=== PATIENT | male | born 1945 | race Caucasian/White ===

== ENCOUNTER 2016-11-23 11:25 | Emergency (ER) | payer OTHER ==
[2016-11-23 11:35] VITALS: BP 131/52
[2016-11-23] MEDS ORDERED: Insulin Regular, Human 100 Units/ML 3 ML Vial SUBCUT ONE (11:49)
[2016-11-23] MEDS ORDERED: Sodium Chloride 0.9% 10 ML Syringe FLUSH PRN (12:11)
--- NOTE | 2016-11-23 12:54 | EDM.PDOC ---
ED HPI GENERAL MEDICAL PROBLEM - General Chief Complaint: General Stated Complaint: Hyperglycemia Time Seen by Provider: 11/23/16 12:20 Source of Information: Reports: Family History Limitations: Reports: Altered Mental Status - History of Present Illness INITIAL COMMENTS - FREE TEXT/NARRATIVE: Patient brought here by spouse after she found his morning blood sugar to be just over 500 on their monitor. He has dementia and per may have acted a bit more confused than usual this morning. Normally she gets up before him and makes certain he gets his morning pills and insulin. Today she slept in and he woke up before her. She asked him if he took his insulin and he said yes. She looked at the pills that were laid out for the AM and he had not taken those. She says she doubts he took his morning insulin as he usually will not remember to do this on his own. Also reports patient has had recent cough during ROS. No fevers/chills. No other changes per . Negative for HEENT/CV/GI//Musc-skeletal changes. No med changes recently. - Related Data Allergies Allergy/AdvReac Type Severity Reaction Status Date / Time No Known Allergies Allergy Verified 11/23/16 11:29 Home Meds: Home Meds Aspirin [Low Dose Aspirin EC] 81 mg PO DAILY 11/23/16 [History] Capsaicin [Trixaicin HP 0.075% Crm] 1 applic TOP TID PRN 11/23/16 [History] Hydrochlorothiazide 25 mg PO DAILY 11/23/16 [History] Hydrocodone/Acetaminophen [Hydrocodon-Acetaminophn 10-325] 1 tab PO Q8HR PRN [History] Insulin Glarg,Human.Rec.Analog [Lantus] 60 units SUBCUT DAILY 11/23/16 [History] Lisinopril 10 mg PO DAILY 11/23/16 [History] Non-Formulary Medication [NF Drug] 1 applic TOP TID 11/23/16 [History] Non-Formulary Medication [NF Drug] 1 cap PO BIDMEALS 11/23/16 [History] Pregabalin [Lyrica] 100 mg PO BID 11/23/16 [History] Timolol Maleate [Timoptic 0.5% Ophth Soln] 1 drop EYEBOTH DAILY 11/23/16 [ History] atorvaSTATin Calcium [Atorvastatin Calcium] 80 mg PO BEDTIME 11/23/16 [History] metFORMIN HCl [Metformin HCl] 1,000 mg PO BIDAC 11/23/16 [History] Past Medical History HEENT History: Reports: Glaucoma Cardiovascular History: Reports: High Cholesterol, Hypertension Musculoskeletal History: Reports: Osteoarthritis Neurological History: Reports: Other (See Below) (Dementia) Endocrine/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 reports no additional changes.) ED EXAM, GENERAL - Physical Exam Exam: See Below Exam Limited By: No Limitations General Appearance: Alert, WD/WN, No Apparent Distress, Other (very happy, pleasantly confused. ) Eye Exam: Bilateral Eye: EOMI, PERRL Ears: Normal External Exam, Normal Canal, Hearing Grossly Normal, Normal TMs Nose: Normal Inspection Throat/Mouth: Normal Inspection, Normal Lips, Normal Oropharynx, Normal Voice, No Airway Compromise, Other (Is missing some teeth) Head: Atraumatic, Normocephalic Neck: Normal Inspection, Supple, Non-Tender, Full Range of Motion. No: Lymphadenopathy (L), Lymphadenopathy (R) Respiratory/Chest: No Respiratory Distress, Lungs Clear, Normal Breath Sounds, No Accessory Muscle Use, Chest Non-Tender Cardiovascular: Normal Peripheral Pulses, Regular Rate, Rhythm, No Edema, No Murmur Peripheral Pulses: 2+: Radial (L), Radial (R) GI/Abdominal: Normal Bowel Sounds, Soft, Non-Tender Back Exam: Normal Inspection Extremities: Normal Inspection, Normal Range of Motion, Non-Tender, No Pedal Edema, Normal Capillary Refill Neurological: Alert, Normal Gait, No Motor/Sensory Deficits, Memory Loss Recent Events Psychiatric: Normal Affect, Normal Mood Skin Exam: Warm, Dry, Intact, Normal Color Course - Vital Signs Last Recorded V/S: Last Vital Signs Temp 37.4 C 11/23/16 11:34 Pulse 87 11/23/16 11:34 Resp 16 11/23/16 11:34 BP 131/52 L 11/23/16 11:34 Pulse Ox 98 11/23/16 11:34 - Orders/Labs/Meds Orders: Active Orders 24 hr Category Date Time Status Blood Glucose Check, Bedside [RC] ONETIME Care 11/23/16 11:50 Active Glucose [Blood Glucose Check, Bedside] [RC] ONETIME Care 11/23/16 13:18 Active Chest 2V [CR] Stat Exams 11/23/16 11:48 Taken Insulin Regular, Human [HumuLIN R] Med 11/23/16 17:30 Active 6 unit SUBCUT BIDAC Sodium Chloride 0.9% [Saline Flush] Med 11/23/16 12:11 Active 10 ml FLUSH ASDIRECTED PRN Saline Lock Insert [OM.PC] Routine Oth 11/23/16 11:50 Ordered Medication Orders Insulin Human Regular (Humulin R) 6 unit SUBCUT BIDAC DAVID PRN Reason: Protocol Last Admin: 11/23/16 13:53 Dose: 6 units Sodium Chloride (Saline Flush) 10 ml FLUSH ASDIRECTED PRN PRN Reason: Keep Vein Open Last Admin: 11/23/16 13:29 Dose: 10 ml Labs: Laboratory Tests 11/23/16 11/23/16 11/23/16 Range/Units 11:41 12:05 12:05 WBC 13.7 H (4.0-10.2) K/uL RBC 4.48 (4.33-5.41) M/uL Hgb 13.5 (13.1-16.8) g/dL Hct 38.8 L (39.0-49.0) % MCV 86.6 (84.0-98.0) fL MCH 30.1 (28.2-33.3) pg MCHC 34.8 (31.7-36.0) g/dL RDW 12.3 (11.2-14.1) % Plt Count 278 (150-350) K/uL Neut % (Auto) 77.6 (45.0-80.0) % Lymph % (Auto) 11.3 (10.0-50.0) % [place] % (Auto) 7.5 (2.0-14.0) % Eos % (Auto) 3.1 (0.0-5.0) % Baso % (Auto) 0.5 (0.0-2.0) % Neut # (Auto) 10.61 H (1.40-7.00) K/uL Lymph # (Auto) 1.55 (0.50-3.50) K/uL [place] # (Auto) 1.02 H (0.00-1.00) K/uL Eos # (Auto) 0.42 (0.00-0.50) K/uL Baso # (Auto) 0.07 (0.00-0.20) K/uL Sodium 128 L (136-145) mmol/L Potassium 5.1 (3.5-5.1) mmol/L Chloride 94 L (98-107) mmol/L Carbon Dioxide 24.2 (21.0-32.0) mmol/L BUN 73 H (7-18) mg/dL Creatinine 1.79 H (0.51-1.17) mg/dL Est Cr Clr Drug Dosing 39.08 mL/min Estimated GFR (MDRD) 38 mL/min Glucose 441 H* (74-106) mg/dL POC Glucose 435 H* (65-110) mg/dl Lactic Acid (0.4-2.0) mmol/L Calcium 9.1 (8.5-10.1) mg/dL Total Bilirubin 0.4 (0.2-1.0) mg/dL AST 33 (15-37) U/L ALT 44 (12-78) U/L Alkaline Phosphatase 154 H (46-116) IU/L Pnr-A-Njgrnrrwdoc Pept (0-125) pg/mL Total Protein 7.1 (6.4-8.2) g/dL Albumin 3.2 L (3.4-5.0) g/dL Specimen Type Urine Color Urine Appearance Urine pH (5.0-9.0) Ur Specific [place] (1.005-1.030) Urine Protein (NEGATIVE) mg/dL Urine Glucose (UA) (NEGATIVE) mg/dL Urine Ketones (NEGATIVE) mg/dL Urine Occult Blood (NEGATIVE) Urine Nitrite (NEGATIVE) Urine Bilirubin (NEGATIVE) Urine Urobilinogen (0.2-1.0) E.U./dL Ur Leukocyte Esterase (NEGATIVE) Urine RBC /HPF Urine WBC /HPF Ur Epithelial Cells /LPF Urine Bacteria (NONE TO FEW) /HPF 11/23/16 11/23/16 11/23/16 Range/Units 12:05 12:05 12:20 WBC (4.0-10.2) K/uL RBC (4.33-5.41) M/uL Hgb (13.1-16.8) g/dL Hct (39.0-49.0) % MCV (84.0-98.0) fL MCH (28.2-33.3) pg MCHC (31.7-36.0) g/dL RDW (11.2-14.1) % Plt Count (150-350) K/uL Neut % (Auto) (45.0-80.0) % Lymph % (Auto) (10.0-50.0) % [place] % (Auto) (2.0-14.0) % Eos % (Auto) (0.0-5.0) % Baso % (Auto) (0.0-2.0) % Neut # (Auto) (1.40-7.00) K/uL Lymph # (Auto) (0.50-3.50) K/uL [place] # (Auto) (0.00-1.00) K/uL Eos # (Auto) (0.00-0.50) K/uL Baso # (Auto) (0.00-0.20) K/uL Sodium (136-145) mmol/L Potassium (3.5-5.1) mmol/L Chloride (98-107) mmol/L Carbon Dioxide (21.0-32.0) mmol/L BUN (7-18) mg/dL Creatinine (0.51-1.17) mg/dL Est Cr Clr Drug Dosing mL/min Estimated GFR (MDRD) mL/min Glucose (74-106) mg/dL POC Glucose (65-110) mg/dl Lactic Acid 1.2 (0.4-2.0) mmol/L Calcium (8.5-10.1) mg/dL Total Bilirubin (0.2-1.0) mg/dL AST (15-37) U/L ALT (12-78) U/L Alkaline Phosphatase (46-116) IU/L Xgr-[id number]-Bogzlabffpm Pept 48 (0-125) pg/mL Total Protein (6.4-8.2) g/dL Albumin (3.4-5.0) g/dL Specimen Type Urinblad Urine Color Yellow Urine Appearance Clear Urine pH 5.0 (5.0-9.0) Ur Specific [place] 1.015 (1.005-1.030) Urine Protein Negative (NEGATIVE) mg/dL Urine Glucose (UA) 500 H (NEGATIVE) mg/dL Urine Ketones Negative (NEGATIVE) mg/dL Urine Occult Blood Negative (NEGATIVE) Urine Nitrite Negative (NEGATIVE) Urine Bilirubin Negative (NEGATIVE) Urine Urobilinogen 0.2 (0.2-1.0) E.U./dL Ur Leukocyte Esterase Negative (NEGATIVE) Urine RBC 0-5 /HPF Urine WBC 0-5 /HPF Ur Epithelial Cells Few /LPF Urine Bacteria Rare (NONE TO FEW) /HPF 11/23/16 Range/Units 13:32 WBC (4.0-10.2) K/uL RBC (4.33-5.41) M/uL Hgb (13.1-16.8) g/dL Hct (39.0-49.0) % MCV (84.0-98.0) fL MCH (28.2-33.3) pg MCHC (31.7-36.0) g/dL RDW (11.2-14.1) % Plt Count (150-350) K/uL Neut % (Auto) (45.0-80.0) % Lymph % (Auto) (10.0-50.0) % [place] % (Auto) (2.0-14.0) % Eos % (Auto) (0.0-5.0) % Baso % (Auto) (0.0-2.0) % Neut # (Auto) (1.40-7.00) K/uL Lymph # (Auto) (0.50-3.50) K/uL [place] # (Auto) (0.00-1.00) K/uL Eos # (Auto) (0.00-0.50) K/uL Baso # (Auto) (0.00-0.20) K/uL Sodium (136-145) mmol/L Potassium (3.5-5.1) mmol/L Chloride (98-107) mmol/L Carbon Dioxide (21.0-32.0) mmol/L BUN (7-18) mg/dL Creatinine (0.51-1.17) mg/dL Est Cr Clr Drug Dosing mL/min Estimated GFR (MDRD) mL/min Glucose (74-106) mg/dL POC Glucose 332 H* (65-110) mg/dl Lactic Acid (0.4-2.0) mmol/L Calcium (8.5-10.1) mg/dL Total Bilirubin (0.2-1.0) mg/dL AST (15-37) U/L ALT (12-78) U/L Alkaline Phosphatase (46-116) IU/L Alu-P-Jpmtuubtpzr Pept (0-125) pg/mL Total Protein (6.4-8.2) g/dL Albumin (3.4-5.0) g/dL Specimen Type Urine Color Urine Appearance Urine pH (5.0-9.0) Ur Specific [place] (1.005-1.030) Urine Protein (NEGATIVE) mg/dL Urine Glucose (UA) (NEGATIVE) mg/dL Urine Ketones (NEGATIVE) mg/dL Urine Occult Blood (NEGATIVE) Urine Nitrite (NEGATIVE) Urine Bilirubin (NEGATIVE) Urine Urobilinogen (0.2-1.0) E.U./dL Ur Leukocyte Esterase (NEGATIVE) Urine RBC /HPF Urine WBC /HPF Ur Epithelial Cells /LPF Urine Bacteria (NONE TO FEW) /HPF Meds: Medications Generic Name Dose Route Start Last Admin Trade Name Freq PRN Reason Stop Dose Admin Insulin Human Regular 6 unit 11/23/16 17:30 11/23/16 13:53 Humulin R SUBCUT 6 units BIDAC DAVID Administration Protocol Sodium Chloride 10 ml 11/23/16 12:11 11/23/16 13:29 Saline Flush FLUSH 10 ml ASDIRECTED PRN Administration Keep Vein Open Discontinued Medications Generic Name Dose Route Start Last Admin Trade Name Freq PRN Reason Stop Dose Admin Sodium Chloride 1,000 mls @ 200 mls/hr 11/23/16 12:59 Normal Saline IV 11/23/16 17:58 .BOLUS ONE Sodium Chloride 250 mls @ 500 mls/hr 11/23/16 13:17 11/23/16 13:28 Normal Saline IV 11/23/16 13:46 500 mls/hr ONETIME ONE Administration Insulin Human Regular 8 unit 11/23/16 11:49 11/23/16 11:53 Humulin R SUBCUT 11/23/16 11:50 8 units ONETIME ONE Administration Protocol - Radiology Interpretation Free Text/Narrative:: chest xray performed. Questionable mild infiltrates inferiorly bilaterally vs fibrosis. - Re-Assessments/Exams Free Text/Narrative Re-Assessment/Exam: 11/23/16 14:20 WBC elevated at 13,000 Normal lactic acid. BUN/CR elevated. NA depressed. K high normal. Blood glucose in 400s. Improved with short acting insulin. Called and discussed patient with JOO Garcia for [facility] today. They accepted patient in transfer for treatment of hyperglycemia/hyponatremia/mild dehydration. BUN and Cr were normal in June per , as was sodium. May consider initiation of antibiotics given mild elevation in WBC and chest film findings. However lung exam unremarkable and no coughing/other respiratory symptoms were noted at all while patient was here. Driven by private vehicle to [facility]. Departure - Departure Time of Disposition: 14:24 Disposition: DC/Tfer to [facility] Condition: good Clinical Impression: Hyperglycemia, Hypokalemia, Mild dehydration, Cough Leukocytosis Qualifiers: Leukocytosis type: unspecified Qualified Code(s): D72.829 - Elevated white blood cell count, unspecified - Discharge Information Forms: ED Department Discharge - My Orders Last 24 Hours: My Active Orders 11/23/16 11:48 Chest 2V [CR] Stat 11/23/16 11:50 Blood Glucose Check, Bedside [RC] ONETIME Saline Lock Insert [OM.PC] Routine 11/23/16 12:11 Sodium Chloride 0.9% [Saline Flush] 10 ml FLUSH ASDIRECTED PRN 11/23/16 13:18 Glucose [Blood Glucose Check, Bedside] [RC] ONETIME 11/23/16 17:30 Insulin Regular, Human [HumuLIN R] 6 unit SUBCUT BIDAC - Assessment/Plan Last 24 Hours: My Active Orders 11/23/16 11:48 Chest 2V [CR] Stat 11/23/16 11:50 Blood Glucose Check, Bedside [RC] ONETIME Saline Lock Insert [OM.PC] Routine 11/23/16 12:11 Sodium Chloride 0.9% [Saline Flush] 10 ml FLUSH ASDIRECTED PRN 11/23/16 13:18 Glucose [Blood Glucose Check, Bedside] [RC] ONETIME 11/23/16 17:30 Insulin Regular, Human [HumuLIN R] 6 unit SUBCUT BIDAC
[2016-11-23] MEDS ORDERED: Sodium Chloride 0.9% 1,000 ML IV ONE (12:59)
[2016-11-23] MEDS ORDERED: Sodium Chloride 0.9% 250 ML IV ONE (13:17)
[2016-11-23] MEDS ORDERED: Insulin Regular, Human 100 Units/ML 3 ML Vial SUBCUT SCH (17:30)
== END 2016-11-23 14:40 ==
LOC: LL.ED 11:25
DX: E11.65 Type 2 diabetes mellitus with hyperglycemia (principal); E87.6 Hypokalemia; E86.0 Dehydration; R05 Cough; I10 Essential (primary) hypertension; E78.00 Pure hypercholesterolemia, unspecified; M19.90 Unspecified osteoarthritis, unspecified site; D72.829 Elevated white blood cell count, unspecified; Z79.82 Long term (current) use of aspirin; Z79.4 Long term (current) use of insulin; Z79.899 Other long term (current) drug therapy; Z79.84 Long term (current) use of oral hypoglycemic drugs
CPT/HCPCS: 36415; 71020; 80053; 81001; 82962; 83605; 83880; 85025; 96372; 99285; J1815; J7050; 99284

== ENCOUNTER 2017-10-06 15:19 | Emergency (ER) | payer OTHER ==
[2017-10-06 15:40] VITALS: BP 141/77
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
== END 2017-10-06 16:30 | disposition home or self-care (01) ==
LOC: LL.ED 15:19
DX: F43.10 Post-traumatic stress disorder, unspecified (principal); I35.0 Nonrheumatic aortic (valve) stenosis; E78.5 Hyperlipidemia, unspecified; M15.0 Primary generalized (osteo)arthritis; E11.42 Type 2 diabetes mellitus with diabetic polyneuropathy; I10 Essential (primary) hypertension; E11.40 Type 2 diabetes mellitus with diabetic neuropathy, unspecified; E78.00 Pure hypercholesterolemia, unspecified; Z79.4 Long term (current) use of insulin; Z79.899 Other long term (current) drug therapy; Z87.891 Personal history of nicotine dependence
CPT/HCPCS: 99283; 99284